=== PATIENT | male | born 1980 | race Caucasian/White ===

== ENCOUNTER 2021-03-22 22:16 | Emergency (ER) | payer MEDICAID ==
[~2021-03-22] VITALS: Ht 177.8 cm; Wt 77.0 kg
[~2021-03-22 22:16] MED LIST: CLON1TAB; DEXT10TA4
[2021-03-23 00:33] LABS: BASOPHILS % 1.5 % (0.0-2.0); EOSINOPHILS % 2.5 % (0.0-5.0); HEMATOCRIT. 47.3 % (42.0-52.0); HEMOGLOBIN. 16.5 g/dL (14.0-18.0); LYMPHOCYTES % 25.4 % (20.0-50.0); MEAN CORPUSCULAR HEMOGLOBIN 29.7 pg (28.0-32.0); MEAN CORPUSCULAR VOLUME 85.2 fL (80.0-94.0); MEAN PLATELET VOLUME 8.3 fl (7.4-10.4); NEUTROPHILS % 58.6 % (40.0-76.0); PLATELET 233 x1000/uL (130-400); RED BLOOD CELL COUNT 5.55 mill/uL (4.7-6.1)
[2021-03-23 00:40] LABS: ETHANOL BLOOD < 10 mg/dL
[2021-03-23 00:43] LABS: CHLORIDE 104 mEq/L (98-107)
[2021-03-23] MEDS ORDERED: ONDA4TAB5 MT (01:14)
[2021-03-23] MEDS ORDERED: ONDANSETRON 4MG ODT PO ONE (01:30)
[2021-03-23 01:40] VITALS: BP 128/94
== END 2021-03-23 01:45 | disposition home or self-care (01) ==
LOC: ER 22:16
DX: R10.9 Unspecified abdominal pain (principal)
CPT/HCPCS: 36415; 80053; 80320; 83690; 85025; 99283; Q0162; G0480

== ENCOUNTER 2021-12-21 02:08 | Emergency (ER) | payer MEDICAID ==
[~2021-12-21] VITALS: Ht 188 cm; Wt 100.0 kg
[~2021-12-21 02:08] MED LIST changes: +ONDA4TAB5 MT
[2021-12-21 02:30] VITALS: BP 151/90
[2021-12-21] MEDS ORDERED: ABIL10 MT (02:32)
== END 2021-12-21 02:40 | disposition home or self-care (01) ==
LOC: ER 02:08
DX: I10 Essential (primary) hypertension (principal); Z76.0 Encounter for issue of repeat prescription; R44.0 Auditory hallucinations
CPT/HCPCS: 99283

== ENCOUNTER 2022-04-29 00:18 | Emergency (ER) | payer MEDICAID ==
[~2022-04-29] VITALS: Ht 188 cm; Wt 100.0 kg
[~2022-04-29 00:18] MED LIST changes: +ABIL10 MT
[2022-04-29 00:20] VITALS: BP 134/86
== END 2022-04-29 03:00 | disposition left against medical advice (07) ==
LOC: ER 00:20
DX: Z53.21 Procedure and treatment not carried out due to patient leaving prior to being seen by health care provider (principal)